=== PATIENT | male | born 1955 | race Caucasian/White ===

== ENCOUNTER 2017-06-03 09:14 | Emergency (ER) | payer BC ==
[~2017-06-03] VITALS: Ht 170.2 cm; Wt 76.5 kg
[2017-06-03 09:17] VITALS: BP 107/59; PULSE 77; RESP 20; TEMP 98.6; O2SAT 95
--- NOTE | 2017-06-03 09:52 | PD ---
HPI Chief Complaint: Cold / Flu Symptoms Time Seen by Provider: 09:45 Travel History International Travel<30 days: No Contact w/Intl Traveler<30days: No Traveled to known affect area: No History of Present Illness HPI Patient comes to the emergency department complaining of cold and flulike symptoms began less than 48 hours ago. Patient reports subjective fevers, generalized body aches, and dry nonproductive cough. Patient reports taking Tylenol seems to help some. Denies anything making it worse. Denies any known sick contacts. Denies any chest pain, shortness of breath, sore throat, headache, neck pain, nausea, vomiting, or loss or change in bowel or bladder. PFSH Past Medical History Medical History: Denies Significant Hx Social History Alcohol Use: Yes Tobacco Use: No Substance Use: No Allergies-Medications (Allergen,Severity, Reaction): Coded Allergies: Penicillins (Verified Allergy, Unknown, UNKNOWN, 06/03/17) Reported Meds & Prescriptions Reported Meds & Active Scripts Active Tamiflu (Oseltamivir Phosphate) 75 Mg Cap 75 Mg PO BID 5 Days Reported Diclofenac Potassium 50 Mg Tab 50 Mg PO TID PRN Review of Systems Except as stated in HPI: all other systems reviewed are Neg Physical Exam Narrative GENERAL: Well-developed, overly nourished, in no acute distress, and non-ill appearing. SKIN: Focused skin assessment warm and dry. HEAD: Atraumatic. Normocephalic. EYES: Pupils equal and round. EOMI. No scleral icterus. No injection or drainage. ENT: No nasal bleeding or discharge. Mucous membranes pink and moist. Tympanic membranes pearly gil bilaterally. Posterior pharynx nonerythematous without exudate. Uvula is midline. No tenderness to facial sinuses to palpation. NECK: Trachea midline. No cervical lymphadenopathy. Supple. No nuclear rigidity. CARDIOVASCULAR: Regular rate and rhythm. No murmur appreciated. RESPIRATORY: No accessory muscle use. No respiratory distress. Clear to auscultation. Breath sounds equal bilaterally. MUSCULOSKELETAL: No obvious deformities. No clubbing. No cyanosis. No edema. Full range of motion. NEUROLOGICAL: Awake and alert. No obvious cranial nerve deficits. Motor grossly within normal limits. Normal speech. PSYCHIATRIC: Appropriate mood and affect; insight and judgment normal. Data Data Last Documented VS Vital Signs Date Time Temp Pulse Resp B/P (MAP) Pulse Ox O2 Delivery O2 Flow Rate FiO2 2/19/18 09:17 98.6 77 20 107/59 (75) 95 Orders Orders Influenzae A/B Antigen (06/03/17 09:49) Chest, Single Ap (06/03/17 ) Ed Discharge Order (06/03/17 11:31) MDM Medical Decision Making Medical Screen Exam Complete: Yes Emergency Medical Condition: Yes Interpretation(s) Last Impressions Chest X-Ray 06/03/17 0000 Signed Impressions: Service Date/Time: Saturday, June 03, 2017 10:10 - CONCLUSION: No acute findings in the chest. Scattered small bilateral granulomata. Shorty Trotter MD Differential Diagnosis Influenza, pneumonia, bronchitis, URI, viral syndrome Narrative Course Patient looks great. Patients symptom complex is consistent with Influenza, or flu-like illness. The patient is tolerating fluids and is well hydrated. There is no evidence to suggest secondary infection (pneumonia, sepsis/bacteremia, etc.) at this time. I discussed with the patient, diagnosis, and plan of care and to follow up with the patients primary physician. I discussed with the patient regarding testing, rapid influenza negative, I suspect false negative. I discussed with the patient initiating Tamiflu and the patient agreed with plan. The patient was instructed to return if the worsens in anyway, especially if not tolerating fluids, increased pain or swelling, difficulty swallowing or breathing, or as needed. The patient agreed with plan. Chest X-ray was performed and negative for consolidation, pneumonia. Patient in no obvious distress upon re-evaluation. All pertinent laboratory/ Radiology result(s) discussed with patient/family. Patient was asked if they wanted to speak to my attending, which the patient did not wish to do at this time. Any questions/concerns in reference to patient diagnosis/condition discussed and clarified prior to patient's discharge. Reinforced sheer importance of close follow up with patient's primary physician or primary care clinic. Instructed patient to return to ED immediately, if symptoms return/ worsen. Patient showed understanding of above instructions. Further instructions and recommendations were detailed in discharge paperwork. Patient ambulated without difficulty out of ED at discharge. 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 Follow-up with your primary care doctor in 3-5 days for reevaluation. Take all medication as prescribed. Use [id number] Tylenol as needed for any fever and/or pain control. Follow instructions on the packaging. Drink plenty of non- caffeinated nonalcoholic fluids. Return to the emergency department if symptoms get worse. Med/Other Pt SpecificInfo: Prescription(s) given Scripts Oseltamivir (Tamiflu) 75 Mg Cap 75 MG PO BID for Mgmt Viral Infection for 5 Days, #10 CAP 0 Refills Prov: Darwin Crane MD 06/03/17 Disposition: 01 DISCHARGE HOME Condition: Stable Luis Armando Sprague Jun 03, 2017 09:52
[2017-06-03] MEDS ORDERED: DICL50TA PO (09:59)
--- NOTE | 2017-06-03 11:07 | RADRPT ---
EXAM DATE/TIME: 06/03/2017 10:10 [facility] COMPARISON: No previous studies available for comparison. INDICATIONS : Short of Breath MEDICAL HISTORY : None. SURGICAL HISTORY : None. ENCOUNTER: Initial ACUITY: 3 days PAIN SCORE: 0/10 LOCATION: chest FINDINGS: A single view of the chest demonstrates the lungs to be symmetrically aerated without evidence of mas s, infiltrate or effusion. A few small calcified nodules in both lungs measuring 3 mm less. The car diomediastinal contours are unremarkable. Osseous structures are intact. CONCLUSION: No acute findings in the chest. Scattered small bilateral granulomata. Shorty Trotter MD on June 03, 2017 at 11:05 Board Certified Radiologist. This report was verified electronically.
[2017-06-03] MEDS ORDERED: OSEL75 PO (11:30)
== END 2017-06-03 11:37 | disposition home or self-care (01) ==
LOC: PHED 09:14 → PHEFT 11:37
DX: R05 Cough (principal); R50.9 Fever, unspecified; R52 Pain, unspecified; J84.10 Pulmonary fibrosis, unspecified
CPT/HCPCS: 71045; 87804; 99284